=== PATIENT | female | born 1985 | race African-American/Black ===

== ENCOUNTER 2021-02-01 02:42 | Emergency (ER) | payer SELFPAY ==
[~2021-02-01] VITALS: Ht 160 cm; Wt 90.0 kg
[2021-02-01] MEDS ORDERED: IBUP-2029 MT (05:37)
[2021-02-01] MEDS ORDERED: HYDROCODONE/ACETAMINOPHEN 5/325MG TABLET PO ONE (05:45)
[2021-02-01 05:46] VITALS: BP 122/77
== END 2021-02-01 06:56 | disposition home or self-care (01) ==
LOC: ER 02:42
DX: S62.502A Fracture of unspecified phalanx of left thumb, initial encounter for closed fracture (principal); I10 Essential (primary) hypertension; W18.39XA Other fall on same level, initial encounter; Y93.89 Activity, other specified; Y92.89 Other specified places as the place of occurrence of the external cause; Y99.8 Other external cause status
CPT/HCPCS: 29125; 73140; 81025; 99283